=== PATIENT | male | born 2000 | race Caucasian/White ===

== ENCOUNTER 2020-09-15 08:41 | Emergency (ER) | payer SELFPAY ==
[2020-09-15] MEDS ORDERED: Acetaminophen 500 MG TAB ONE (09:26)
[2020-09-15] MEDS ORDERED: Ibuprofen 200 MG TAB ONE (09:26)
[2020-09-15] MEDS ORDERED: Ondansetron ODT 4 MG TAB ONE (10:25)
== END 2020-09-15 10:29 | disposition home or self-care (01) ==
LOC: CSHERS 08:41
DX: R11.2 Nausea with vomiting, unspecified (principal); R50.9 Fever, unspecified; R05 Cough; R52 Pain, unspecified
CPT/HCPCS: 71046; 87804; 99284; Q0162

== ENCOUNTER 2020-09-18 09:42 | Emergency (ER) | payer SELFPAY ==
[2020-09-18] MEDS ORDERED: Ketorolac Tromethamine 30 MG/ML VIAL ONE (10:28)
== END 2020-09-18 10:39 | disposition home or self-care (01) ==
LOC: CSHERS 09:42
DX: J06.9 Acute upper respiratory infection, unspecified (principal)
CPT/HCPCS: 96372; 99283; J1885